=== PATIENT | male | born 1955 | race Caucasian/White ===

== ENCOUNTER 2019-07-23 10:45 | Observation (INO) | payer OTHER ==
[2019-07-23 11:13] LABS: Absolute Lymphocytes (CBC) 0.5 K/uL (0.7-4.9); Basophils % 1.1 % (0-1.3); Hematocrit 31.2 % (39.6-49.0); Lymphocytes % 8.6 % (15.3-44.8); MPV 7.8 fL (7.6-11.3); RBC Red Blood Cell Count 4.05 M/uL (4.33-5.43)
--- NOTE | 2019-07-23 11:14 | ER ---
Nurse's Notes [facility] Name: Dustin Mireles Age: 63 yrs Sex: Male : 1955 Arrival Date: 07/23/2019 Time: 10:47 Bed 14 Private MD: Diagnosis: Ascites;Unspecified cirrhosis of liver Presentation: 07/23 10:42 Presenting complaint: EMS states: pt c/o abdominal pain and distention x1 week, getting tw2 worse, he had a paracentesis on 06/25, pt does have HEP C, DM, HTN, LEFT BKA, vs stable. Transition of care: patient was not received from another setting of care. Onset of symptoms was July 23, 2019. Risk Assessment: Do you want to hurt yourself or someone else? Patient reports no desire to harm self or others. Initial Sepsis Screen: Does the patient meet any 2 criteria? No. Patient's initial sepsis screen is negative. Does the patient have a suspected source of infection? No. Patient's initial sepsis screen is negative. Care prior to arrival: None. 10:42 Method Of Arrival: [facility] tw2 10:42 Acuity: SANTA 3 tw2 Triage Assessment: 10:51 General: Appears in no apparent distress. Behavior is calm, cooperative, appropriate tw2 for age. Pain: Complains of pain in abdomen. Historical: - Allergies: 10:53 No Known Allergies; tw2 - Home Meds: 11:43 Trulicity 1.5 mg/0.5 mL subcutaneous pnij 0.5 mL once wkly [Active]; lactulose 10 tw2 gram/15 mL Oral soln 30 mL as needed [Active]; Zofran (as hydrochloride) 4 mg Oral tab 1 tabs [Active]; Plavix 75 mg Oral tab 1 tab once daily [Active]; furosemide 40 mg Oral tab 1 tab once daily [Active]; glipizide 10 mg Oral tab 1 tab once daily [Active]; spironolactone 100 mg Oral tab 1 tab once daily [Active]; metformin 500 mg Oral Tb24 1 tab once daily [Active]; - PMHx: 10:53 Hepatitis; c; Hypertension; Diabetes - IDDM; tw2 - PSHx: 10:53 BKA; tw2 - Immunization history:: Adult Immunizations. - Social history:: Smoking status: . - Ebola Screening: : Patient denies travel to an Ebola-affected area in the 21 days before illness onset. Screenin:09 Abuse screen: Denies threats or abuse. Nutritional screening: No deficits noted. tw2 Tuberculosis screening: No symptoms or risk factors identified. Fall Risk Secondary diagnosis (15 points) impaired mobility, BKA. Assessment: 10:50 General: Appears in no apparent distress. Behavior is calm, cooperative, appropriate tw2 for age. Pain: Complains of pain in abdomen. Neuro: Level of Consciousness is awake, alert, obeys commands, Oriented to person, place, time, situation. Cardiovascular: Heart tones S1 S2 Patient's skin is warm and dry. Respiratory: Airway is patent Respiratory effort is even, unlabored, Respiratory pattern is regular, symmetrical, Breath sounds are clear bilaterally. GI: Abdomen is round distended, Bowel sounds present X 4 quads. Abd is rigid X 4 quads. : No signs and/or symptoms were reported regarding the genitourinary system. EENT: No signs and/or symptoms were reported regarding the EENT system. Derm: No signs and/or symptoms reported regarding the dermatologic system. Musculoskeletal: Amputation of RIGHT BKA Reports wound to LEFT lower extremity, pt reports "it gets wrapped weekly from wound care". 11:25 Reassessment: pt moved via stretcher to CT at this time. tw2 13:31 Reassessment: Patient and/or family updated on plan of care and expected duration. Pain tw2 level reassessed. pt back from paracentesis c/o nausea at this time. will call Dr. Fabian at this time for medication. 14:13 Reassessment: Patient appears in no apparent distress at this time. No changes from tw2 previously documented assessment. Patient and/or family updated on plan of care and expected duration. Pain level reassessed. Vital Signs: 10:51 BP 134 / 78; Pulse 92; Resp 17; Temp 97.9(TE); Pulse Ox 95% on R/A; Pain 10/10; tw2 13:34 BP 122 / 62; Pulse 88; Resp 17; Pulse Ox 97% on R/A; tw2 ED Course: 10:42 Bed in low position. Call light in reach. Side rails up X2. maintenance painter on. Pulse tw2 ox on. NIBP on. 10:47 Patient arrived in ED. tw2 10:47 Allie Dumont FNP-C [facility] kb 10:47 Donovan Barrios MD is Attending Physician. kb 10:51 Triage completed. tw2 10:51 Arm band placed on. tw2 11:08 Inserted saline lock: 22 gauge in right forearm, using aseptic technique. Blood tw2 collected. 11:09 Kate Colindres RN is Primary Nurse. tw2 11:13 Reynaldo Chacon is Hospitalizing Provider. kb 12:33 Paracentesis Proc Guidance In Process Unspecified. EDMS 12:42 CT Abd/Pelvis - Without Contrast In Process Unspecified. EDMS 14:13 No provider procedures requiring assistance completed. Patient admitted, IV remains in tw2 place. Administered Medications: 14:05 Drug: Zofran 4 mg Route: IVP; Site: right forearm; tw2 14:17 Follow up: Response: No adverse reaction; Nausea is decreased tw2 Outcome: 11:13 Decision to Hospitalize by Provider. kb 14:13 Admitted to Med/surg accompanied by tech, via stretcher, room 406, with chart, Report tw2 called to SHERRI Bazan 14:13 Condition: stable 14:13 Instructed on the need for admit. 14:28 Patient left the ED. tw2 Signatures: Dispatcher [employer] EDMS Allie Dumont FNP-C MILLED RUBBER TENDER-Ckb Kate Colindres RN RN tw2 Corrections: (The following items were deleted from the chart) 14:17 14:13 Admitted to Med/surg accompanied by tech, via stretcher, room 406, with chart, tw2 Report called to SHERRI Vega tw2
--- NOTE | 2019-07-23 11:15 | EDPHYS ---
Physician Documentation [facility] Name: Dustin Mireles Age: 63 yrs Sex: Male : 1955 Arrival Date: 07/23/2019 Time: 10:47 Bed 14 Private MD: ED Physician Donovan Barrios HPI: 07/23 11:53 This 63 yrs old Male presents to ER via EMS with complaints of abd kb distention/pain. 11:53 The patient presents with abdominal pain that is diffuse, abdominal distention that is kb diffuse. Onset: The symptoms/episode began/occurred 1 week(s) ago. The symptoms do not radiate. Associated signs and symptoms: none. The symptoms are described as constant. Modifying factors: The symptoms are alleviated by nothing, the symptoms are aggravated by nothing. Severity of pain: At its worst the pain was moderate in the emergency department the pain is unchanged. The patient has experienced similar episodes in the past. The patient has not recently seen a physician. Pt reports his abd has been distended since last week and getting worse. Now abd is painful due to swelling. Reports last paracentesis was done at [facility] on 06/25/19 and he was supposed to schedule routine paracentesis to be done outpatient, but someone "dropped the ball on that." Called someone in scheduling and they told him to just come to the ER to get drained. Historical: - Allergies: 10:53 No Known Allergies; tw2 - Home Meds: 11:43 Trulicity 1.5 mg/0.5 mL subcutaneous pnij 0.5 mL once wkly [Active]; lactulose 10 tw2 gram/15 mL Oral soln 30 mL as needed [Active]; Zofran (as hydrochloride) 4 mg Oral tab 1 tabs [Active]; Plavix 75 mg Oral tab 1 tab once daily [Active]; furosemide 40 mg Oral tab 1 tab once daily [Active]; glipizide 10 mg Oral tab 1 tab once daily [Active]; spironolactone 100 mg Oral tab 1 tab once daily [Active]; metformin 500 mg Oral Tb24 1 tab once daily [Active]; - PMHx: 10:53 Hepatitis; c; Hypertension; Diabetes - IDDM; tw2 - PSHx: 10:53 BKA; tw2 - Immunization history:: Adult Immunizations. - Social history:: Smoking status: . - Ebola Screening: : Patient denies travel to an Ebola-affected area in the 21 days before illness onset. ROS: 11:46 Constitutional: Negative for fever, chills, and weight loss, ENT: Negative for injury, kb pain, and discharge, Neck: Negative for injury, pain, and swelling, Cardiovascular: Negative for chest pain, palpitations, and edema, Respiratory: Negative for shortness of breath, cough, wheezing, and pleuritic chest pain, Back: Negative for injury and pain, : Negative for injury, bleeding, discharge, and swelling, MS/Extremity: Negative for injury and deformity, Skin: Negative for injury, rash, and discoloration, Neuro: Negative for headache, weakness, numbness, tingling, and seizure. 11:46 Abdomen/GI: Positive for abdominal pain. Exam: 11:50 Constitutional: This is a well developed, well nourished patient who is awake, alert, kb and in no acute distress. Head/Face: Normocephalic, atraumatic. ENT: Nares patent. No nasal discharge, no septal abnormalities noted. Tympanic membranes are normal and external auditory canals are clear. Oropharynx with no redness, swelling, or masses, exudates, or evidence of obstruction, uvula midline. Mucous membranes moist. Neck: Trachea midline, no thyromegaly or masses palpated, and no cervical lymphadenopathy. Supple, full range of motion without nuchal rigidity, or vertebral point tenderness. No Meningismus. Chest/axilla: Normal chest wall appearance and motion. Nontender with no deformity. No lesions are appreciated. Cardiovascular: Regular rate and rhythm with a normal S1 and S2. No gallops, murmurs, or rubs. Normal PMI, no JVD. No pulse deficits. Respiratory: Lungs have equal breath sounds bilaterally, clear to auscultation and percussion. No rales, rhonchi or wheezes noted. No increased work of breathing, no retractions or nasal flaring. Back: No spinal tenderness. No costovertebral tenderness. Full range of motion. Skin: Warm, dry with normal turgor. Normal color with no rashes, no lesions, and no evidence of cellulitis. MS/ Extremity: Pulses equal, no cyanosis. Neurovascular intact. Full, normal range of motion. Neuro: Awake and alert, GCS 15, oriented to person, place, time, and situation. Cranial nerves II-XII grossly intact. Motor strength 5/5 in all extremities. Sensory grossly intact. Cerebellar exam normal. Normal gait. 11:50 Abdomen/GI: Inspection: distension, that is severe, in the abdomen diffusely, Bowel sounds: normal, in all quadrants, Palpation: mild abdominal tenderness, in all quadrants, . Vital Signs: 10:51 BP 134 / 78; Pulse 92; Resp 17; Temp 97.9(TE); Pulse Ox 95% on R/A; Pain 10/10; tw2 13:34 BP 122 / 62; Pulse 88; Resp 17; Pulse Ox 97% on R/A; tw2 MDM: 10:47 Patient medically screened. kb 11:05 Physician consultation: Rupesh Perdue MD was contacted at 10:55, regarding pt's need for kb paracentesis. Dr Perdue said pt must be admitted for paracentesis to be done, we cannot do it through the ER. 11:06 Physician consultation: Reynaldo Chacon was contacted at 11:00, regarding admission, to kb the medical/surgical unit. patient's condition, Dr Chacon will admit pt for paracentesis. . 11:07 Physician consultation: Rupesh Perdue MD regarding schedule paracentesis for today. kb 11:12 Data reviewed: vital signs, nurses notes. Data interpreted: Pulse oximetry: on room air kb is 95 %. Interpretation: normal. 11:50 Counseling: I had a detailed discussion with the patient and/or guardian regarding: the kb historical points, exam findings, and any diagnostic results supporting the discharge/admit diagnosis, lab results, the need for further work-up and treatment in the hospital. 07/23 10:50 Order name: Basic Metabolic Panel; Complete Time: 11:34 kb 07/23 10:50 Order name: CBC with Diff; Complete Time: 11:21 kb 07/23 10:50 Order name: Hepatic Function; Complete Time: 11:34 kb 07/23 10:50 Order name: Lipase; Complete Time: 11:34 kb 07/23 10:50 Order name: AMMONIA; Complete Time: 11:44 kb 07/23 11:08 Order name: Protime (+inr); Complete Time: 11:44 kb 07/23 10:50 Order name: IV Saline Lock; Complete Time: 11:10 kb 07/23 10:50 Order name: Labs collected and sent; Complete Time: 11:10 kb 07/23 11:05 Order name: CT Abd/Pelvis - Without Contrast; Complete Time: 13:00 kb 07/23 11:08 Order name: Ptt, Activated; Complete Time: 11:44 kb 07/23 11:18 Order name: Paracentesis Proc Guidance; Complete Time: 12:55 EDMS Administered Medications: 14:05 Drug: Zofran 4 mg Route: IVP; Site: right forearm; tw2 14:17 Follow up: Response: No adverse reaction; Nausea is decreased tw2 Disposition: 16:44 Co-signature as Attending Physician, Donovan Barrios MD I agree with the assessment and kdr plan of care. Disposition: 07/23/19 11:13 Hospitalization ordered by Reynaldo Chacon for Observation. Preliminary diagnosis are Ascites, Unspecified cirrhosis of liver. - Bed requested for Telemetry/MedSurg (observation). - Status is Observation. tw2 - Condition is Stable. - Problem is an ongoing problem. - Symptoms are unchanged. UTI on Admission? No Signatures: Dispatcher [employer] EDMS Allie Dumont, DRUG CLERK-C DRUG CLERK-Ckb Donovan Barrios MD MD kdr Kate Colindres RN RN tw2 Kendrick Cage RN RN ja1 Demi Camacho Corrections: (The following items were deleted from the chart) 11:46 11:13 Hospitalization Ordered by Reynaldo Chacon for Observation. Preliminary diagnosis eb is Ascites; Unspecified cirrhosis of liver. Bed requested for Telemetry/MedSurg (observation). Status is Observation. Condition is Stable. Problem is an ongoing problem. Symptoms are unchanged. UTI on Admission? No. kb 11:53 11:50 Abdomen/GI: Inspection: distension, that is severe, in the abdomen diffusely, kb Bowel sounds: normal, in all quadrants, Palpation: mild abdominal tenderness, in all quadrants, , kb 13:48 11:46 07/23/2019 11:13 Hospitalization Ordered by Reynaldo Chacon for Observation. ja1 Preliminary diagnosis is Ascites; Unspecified cirrhosis of liver. Bed requested for Telemetry/MedSurg (observation). Status is Observation. Condition is Stable. Problem is an ongoing problem. Symptoms are unchanged. UTI on Admission? No. eb 14:28 13:48 07/23/2019 11:13 Hospitalization Ordered by Reynaldo Chacon for Observation. tw2 Preliminary diagnosis is Ascites; Unspecified cirrhosis of liver. Bed requested for Telemetry/MedSurg (observation). Status is Observation. Condition is Stable. Problem is an ongoing problem. Symptoms are unchanged. UTI on Admission? No. ja1
[2019-07-23 11:30] LABS: Protime INR 1.18
[2019-07-23 11:31] LABS: Albumin 2.7 g/dL (3.4-5.0); Bilirubin Direct 0.5 mg/dL (0-0.2); Bilirubin Total 1.4 mg/dL (0.2-1.0); Potassium 4.6 mmol/L (3.5-5.1); Protein, Total 7.6 g/dL (6.4-8.2)
--- NOTE | 2019-07-23 12:40 | RAD REPORT ---
EXAM DESCRIPTION: US - Paracentesis Proc Guidance - 07/23/2019 12:32 pm CLINICAL HISTORY: abdominal distention Ascites COMPARISON: No comparisons FINDINGS: Informed consent was obtained and time-out was performed. Patient's abdomen was prepped and draped in the usual sterile fashion. 1% lidocaine was used for loca l anesthetic purposes. A small skin incision was made. A paracentesis catheter was guided into the peroneal cavity under son ographic guidance. A small amount of fluid was sent for requested lab studies. A large volume paracentesis was performed yielding 10 liters of yellow fluid. The patient tolerated the procedure well. Patient was then transferred back to emergency room. IMPRESSION: Successful ultrasound-guided paracentesis.
--- NOTE | 2019-07-23 12:54 | RAD REPORT ---
EXAM DESCRIPTION: CT - Abdomen Pelvis Wo Contrast - 07/23/2019 12:40 pm CLINICAL HISTORY: evaluate ascites;Abd pain Abdominal distention COMPARISON: Paracentesis Proc Guidance dated 07/23/2019 TECHNIQUE: Axial [address] imaging of the abdomen and pelvis was performed without IV contrast. No IV contrast was given because of allergy, abnormal renal function, patient refusal or physician re quest. No oral contrast administered. All CT scans are performed using dose optimization technique as appropriate and may include automated exposure control or mA/KV adjustment according to patient size. FINDINGS: Trace amount of loculated pleural fluid is present in the posterior gutter on the left. Th ere is calcified pleural plaquing and parenchymal stranding changes. This can be monitored on subsequ ent imaging but is all believed to be chronic change. No pericardial thickening or effusion. Liver is grossly abnormal. There is a relatively prominent left lobe and caudate lobe along with caps ular nodularity typical for cirrhosis. In the central inferior right lobe (image 31/93) there is a 3. 6 centimeter rounded low-density mass. This is not fully characterized on noncontrast imaging. In the setting of cirrhosis, a small hepatocellular carcinoma cannot be excluded. No other focal lesions se en on noncontrast imaging. Splenomegaly to 18 cm present. No focal splenic abnormality. No pancreatic or peripancreatic acute pr ocess seen. Cholecystectomy clips are present. No biliary tree dilatation. No hydronephrosis or suspicious renal mass. No significant adrenal finding. Isodense renal masses an d pyelonephritis cannot be excluded in the absence of IV contrast. Urinary bladder is contracted limi ting detail. No bladder calculi. No dilated bowel loops or bowel wall thickening. The appendix is normal. No acute GI process seen. No free air or pneumatosis. Ascites is present estimated at 1-2 liters. Patient underwent a paracentesis procedure shortly before this examination. Approximately 10 liters of ascites was removed. . Patient has fluid retention in t he subcutaneous fatty tissues. No hernia, mass or bulky lymphadenopathy. No suspicious bony findings. IMPRESSION: Advanced cirrhotic changes are present in the liver with a 3.6 cm mass in the inferior r ight lobe of the liver. In this setting hepatocellular carcinoma cannot be excluded. Ascites is present estimated at 1-2 liters. Approximately 10 liters of ascites was removed shortly be fore this examination. Full assessment is limited is the absence of IV contrast.
[2019-07-23] MEDS ORDERED: ONDANSETRON 4 MG/2 ML VIAL ONE (14:02)
[2019-07-23 14:54] VITALS: BMI 31.1
[2019-07-23] MEDS ORDERED: ALBUMIN HUMAN 25% 100 ML IV ONE (16:00)
[2019-07-23] MEDS: INSULIN -REGULAR HUMAN 50 UNIT/0.5 ML ML SQ SCH ×2 (16:30→21:17)
--- NOTE | 2019-07-23 16:50 | P.HP ---
Certification for Inpatient Patient admitted to: Observation With expected LOS: <2 Midnights Practitioner: I am a practitioner with admitting privileges, knowledge of patient current condition, hospital course, and medical plan of care. 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 Patient stated he gets paracentesis about once a month. He was supposed to have an outpatient paracentesis but stated he's not had access to it. He therefore presented to the ED purposely for paracentesis. He report no abdominal pain. In the ED, and abdomen was noted to be markedly distended. He denied any shortness of breath. Denied any confusion. He more than likely will require large volume paracentesis. Patient is placed under observation for further management. Allergies No Known Allergies Allergy (Verified 01/27/19 07:53) Home Medications: Aspirin [Aspirin EC 81 MG] 81 mg PO DAILY 07/23/19 Dulaglutide [Trulicity] 0.5 ml SQ SEECOM 07/23/19 Furosemide 40 mg PO DAILY 07/23/19 Gabapentin 300 mg PO TID 07/23/19 Lactulose [Cephulac*] 30 ml PO DAILYPRN PRN 07/23/19 Metformin HCl [Glucophage*] 500 mg PO TID 07/23/19 Ondansetron [Zofran (Odt)*] 4 mg PO Q8HP 07/23/19 Spironolactone 100 mg PO DAILY 07/23/19 glipiZIDE [Glipizide] 10 mg PO DAILY 07/23/19 - Past Medical/Surgical History Has patient received pneumonia vaccine in the past: Yes Diabetic: Yes -: Hepatitis C -: Hypertension -: Diabetes- IDDM -: Liver Cirrhosis -: Liver Cancer -: Splenomegaly -: Paracentesis -: Right Below Knee Amputation -: Left Toe Amputation -: Neck Fusion -: Cholecystectomy - Family History Father -: Diabetes Notes: Mother -: Diabetes Notes: - Social History Smoking Status: Former smoker Alcohol use: No CD- Drugs: No Caffeine use: No Place of Residence: Home Review of Systems Other: General: No fever, no malaise, no unintentional weight loss. Eyes: No eye discharge, Respiratory: No cough, no shortness of breath. CVS: No chest pain, no palpitation, no lightheadedness. GI: No abdominal pain, no nausea no vomit, no constipation, no diarrhea. Genitourinary: No dysuria, no urinary frequency, no incontinence, no hematuria. Musculoskeletal: No joint pains, or joint swelling, no gait instability. Neurology: No headache, no asymmetric, weakness, no problem with swallowing. Except as documented, all other systems reviewed and negative. Physical Examination - Vital Signs Temperature: 97.9 F Blood Pressure: 122/62 Pulse: 88 Respirations: 17 - Physical Exam General: Alert, In no apparent distress, Oriented x3 HEENT: PERRLA, Mucous membr. moist/pink, Sclerae nonicteric Neck: Supple, JVD not distended Respiratory: Clear to auscultation bilaterally, Normal air movement Cardiovascular: Regular rate/rhythm, Normal S1 S2, No murmurs Capillary refill: <2 Seconds Gastrointestinal: Normal bowel sounds, Soft and benign, No tenderness, Distended (Markedly distended), Ascites Musculoskeletal: No clubbing, Other (Right BKA) Integumentary: Skin breakdown (Left lower extremity venostasis ulcers.) Neurological: Normal speech, Normal strength at 5/5 x4 extr - Studies Laboratory Data (last 24 hrs) 07/23/19 11:16: PT 13.8 H, INR 1.18, APTT 27.4 07/23/19 11:04: WBC 6.4, Hgb 10.2 L, Hct 31.2 L, Plt Count 200 07/23/19 11:04: Sodium 136, Potassium 4.6, BUN 32 H, Creatinine 1.53 H, Glucose 197 H, Total Bilirubin 1.4 H, AST 46 H, ALT 33, Alkaline Phosphatase 212 H, Lipase 118 Assessment and Plan - Problems (Diagnosis) (1) Ascites Current Visit: Yes Status: Acute (2) Liver cirrhosis Current Visit: Yes Status: Acute (3) DM type 2 (diabetes mellitus, type 2) Current Visit: Yes Status: Acute (4) Chronic venous hypertension w/ulcer and inflammation involv right side Current Visit: No Status: Acute (5) Hepatitis C Current Visit: No Status: Acute - Plan Patient has no coagulopathy. He remain awake and alert. He denies any history of hepatic encephalopathy. Place under observation U.S. guided paracentesis performed, 10L assisted fluid drained. IV albumin infusion ordered given large volume paracenteses. Monitor blood pressure closely Insulin sliding scale for glucose management. Hold glipizide Follow up with GI as an outpatient for hepatitis treatment. Possible discharge in a.m. if his condition and vitals remained stable. He will need outpatient set up for periodic paracentesis. - Advance Directives Does patient have a Living Will: No Does patient have a Durable POA for Healthcare: No
[2019-07-23 20:48] LABS: Urine Appearance CLEAR; Urine Bilirubin NEGATIVE (NEG); Urine Blood NEGATIVE (NEG); Urine Color YELLOW; Urine Glucose NEGATIVE (NEG); Urine Protein 1+ (NEG); Urine Specific Gravity 1.015 (1.005-1.030)
[2019-07-23 20:49] LABS: Urine Microscopic Reflex ORDER UMIC
[2019-07-23 20:58] LABS: Urine Bacteria <20 /HPF (NONE SEEN); Urine Culture Reflex Order REFLEXED; Urine RBC <5 /HPF (NONE SEEN); Urine Urothelial Cells <5 /HPF (NONE SEEN)
[2019-07-23] MEDS: ONDANSETRON 4 MG/2 ML VIAL IV PRN (23:55)
[2019-07-24 06:06] LABS: Protime INR 1.21
[2019-07-24 06:07] LABS: Absolute Lymphocytes (CBC) 0.5 K/uL (0.7-4.9); Basophils % 0.9 % (0-1.3); Hematocrit 26.3 % (39.6-49.0); Lymphocytes % 12.6 % (15.3-44.8); MPV 7.8 fL (7.6-11.3); RBC Red Blood Cell Count 3.44 M/uL (4.33-5.43)
[2019-07-24 06:18] LABS: Albumin 2.5 g/dL (3.4-5.0); Bilirubin Total 1.1 mg/dL (0.2-1.0); Magnesium 1.9 mg/dL (1.8-2.4); Phosphorus 3.2 mg/dL (2.5-4.9); Potassium 4.5 mmol/L (3.5-5.1); Protein, Total 6.5 g/dL (6.4-8.2)
[2019-07-24 08:01] VITALS: O2SAT 95
[2019-07-24] MEDS: INSULIN -REGULAR HUMAN 50 UNIT/0.5 ML ML SQ SCH ×2 (08:01→12:11)
[2019-07-24] MEDS ORDERED: LACTULOSE 20 GM/30 ML UCUP PO PRN (10:28)
[2019-07-24] MEDS ORDERED: HOME MED 1 EA UNK (Dulaglutide [Trulicity] 0.5 ML) SQ SCH (10:30)
[2019-07-24] MEDS: GABAPENTIN 300 MG CAP PO SCH ×2 (10:38→13:16)
--- NOTE | 2019-07-24 11:10 | P.DS ---
Admission Date: 07/23/19 Discharge Date: 07/24/19 Disposition: ROUTINE DISCHARGE Discharge Condition: GOOD Reason for Admission: [employer] Consultations: None Procedures: [place] paracentesis - Problems (1) Ascites Current Visit: Yes Status: Acute (2) Liver cirrhosis Current Visit: Yes Status: Acute (3) DM type 2 (diabetes mellitus, type 2) Current Visit: Yes Status: Acute (4) Chronic venous hypertension w/ulcer and inflammation involv right side Current Visit: No Status: Acute (5) Hepatitis C Current Visit: No Status: Acute Brief History of Present Illness: 63-year-old gentleman with a history of liver cirrhosis and recurrent ascites presented to the ED with a complaint of progressively distended abdomen. Patient stated he gets paracentesis about once a month. He was supposed to have an outpatient paracentesis but stated he's not had access to it. He therefore presented to the ED purposely for paracentesis. He reported no abdominal pain. In the ED, and abdomen was noted to be markedly distended. He denied any shortness of breath. Denied any confusion. Patient was placed under observation for further management. Hospital Course: He underwent large volume ultrasound-guided paracentesis, about 10 L of clear ascitic fluid aspirated. The patient was given albumin infusion. His blood pressure was stable after the paracentesis. Noted patient has iron deficiency anemia. Hemoglobin on the day of discharge was 8.8. CT abdomen and pelvis result reviewed. The patient has a 3.6 cm rounded mass in the liver. He is aware of this mass. He stated given the fact that he has hepatitis-C, he was offered chemotherapy previously but he declined. Patient is looking forward for periodic paracentesis to be done at [place] and also see a psych nurse for hepatitis-C treatment. He may need another paracentesis next week. He has been told to follow with his PCP for referral to a psych nurse here and also for arrangement for periodic paracentesis at the radiology department. He is also referral to see Dr. Farias as an outpatient. All his previous home medications have been resumed on discharge without changes. He follows with Dr. Nick for wound care. Vital Signs/Physical Exam: Temp Pulse Resp BP Pulse Ox 98.7 F 82 18 143/67 H 95 07/24/19 08:00 07/24/19 08:00 07/24/19 08:00 07/24/19 08:00 07/24/19 08:00 General: Alert, In no apparent distress, Oriented x3 HEENT: Mucous membr. moist/pink Neck: Supple, JVD not distended Respiratory: Clear to auscultation bilaterally, Normal air movement Cardiovascular: Regular rate/rhythm, Normal S1 S2 Gastrointestinal: Normal bowel sounds, Soft and benign, Distended, Ascites Musculoskeletal: Other (Right BKA) Integumentary: Erythema, Other (Left lower extremity venostasis ulcers.) Neurological: Normal speech, Normal strength at 5/5 x4 extr Laboratory Data at Discharge: WBC 4.1 K/uL (4.3-10.9) L D 07/24/19 05:41 Hgb 8.8 g/dL (13.6-17.9) L 07/24/19 05:41 Hct 26.3 % (39.6-49.0) L D 07/24/19 05:41 Plt Count 160 K/uL (152-406) 07/24/19 05:41 PT 14.2 SECONDS (9.5-12.5) H 07/24/19 05:41 INR 1.21 07/24/19 05:41 APTT 27.4 SECONDS (24.3-36.9) 07/23/19 11:16 Sodium 135 mmol/L (136-145) L 07/24/19 05:41 Potassium 4.5 mmol/L (3.5-5.1) 07/24/19 05:41 BUN 28 mg/dL (7-18) H 07/24/19 05:41 Creatinine 1.28 mg/dL (0.55-1.3) 07/24/19 05:41 Glucose 212 mg/dL (74-106) H 07/24/19 05:41 Phosphorus 3.2 mg/dL (2.5-4.9) 07/24/19 05:41 Magnesium 1.9 mg/dL (1.8-2.4) 07/24/19 05:41 Total Bilirubin 1.1 mg/dL (0.2-1.0) H 07/24/19 05:41 AST 41 U/L (15-37) H 07/24/19 05:41 ALT 28 U/L (12-78) 07/24/19 05:41 Alkaline Phosphatase 175 U/L (45-117) H 07/24/19 05:41 Lipase 118 U/L (73-393) 07/23/19 11:04 Home Medications: Aspirin [Aspirin EC 81 MG] 81 mg PO DAILY 07/23/19 Dulaglutide [Trulicity] 0.5 ml SQ SEECOM 07/23/19 Furosemide 40 mg PO DAILY 07/23/19 Gabapentin 300 mg PO TID 07/23/19 Lactulose [Cephulac*] 30 ml PO DAILYPRN PRN 07/23/19 Metformin HCl [Glucophage*] 500 mg PO TID 07/23/19 Ondansetron [Zofran (Odt)*] 4 mg PO Q8HP 07/23/19 Spironolactone 100 mg PO DAILY 07/23/19 glipiZIDE [Glipizide] 10 mg PO DAILY 07/23/19 Diet: ADA Activity: Ad zacarias Followup: Reema Medina MD [ACTIVE - CAN ADMIT] - 1 Week Rowdy Farias MD [ASSOCIATE-ACTIVE - CAN ADMIT] - 1 Week
[2019-07-24] MEDS ORDERED: METFORMIN HCL 500 MG TAB PO SCH (12:00)
[2019-07-24 12:34] VITALS: BP 118/57; TEMP 97.6
[2019-07-24] MEDS: ONDANSETRON 4 MG/2 ML VIAL IV PRN (13:30)
[2019-07-25] MEDS ORDERED: glipiZIDE 5 MG TAB PO SCH ×2 (08:00→09:00)
[2019-07-25] MEDS ORDERED: SPIRONOLACTONE 100 MG TAB PO SCH (09:00)
[2019-07-25] MEDS ORDERED: HOME MED 1 EA UNK (Glipizide [Glipizide] 10 MG) PO SCH (09:00)
[2019-07-25] MEDS ORDERED: ASPIRIN EC 81 MG TAB PO SCH (09:00)
[2019-07-25] MEDS ORDERED: FUROSEMIDE 40 MG TABLET PO SCH (09:00)
== END 2019-07-24 14:38 | disposition home or self-care (01) ==
LOC: ER 10:45 → ERHOLD 13:38 → 4TH 14:21
PROVIDERS: ADMIT Internal Medicine; ATTEND Internal Medicine
DX: R18.8 Other ascites (principal); K74.60 Unspecified cirrhosis of liver; B17.10 Acute hepatitis C without hepatic coma; I10 Essential (primary) hypertension; E11.9 Type 2 diabetes mellitus without complications; R16.0 Hepatomegaly, not elsewhere classified; D50.9 Iron deficiency anemia, unspecified; Z79.82 Long term (current) use of aspirin; Z89.422 Acquired absence of other left toe(s); Z89.511 Acquired absence of right leg below knee
CPT/HCPCS: 87088; 85025 ×2; 87086; 80048; 36415; 82140; 83735; 84100; 85610 ×2; 82947 ×3; 80076; 85730; 83690; 80053; 74176; 49083; 96374; 99285; P9047; J2405 ×3; G0378 ×3; 81003; 81015